=== PATIENT | male | born 1990 | race Caucasian/White ===

== ENCOUNTER 2022-05-03 19:59 | Emergency (ER) | payer SELFPAY ==
[2022-05-03] MEDS ORDERED: Boostrix 0.5 ML (Tdap) VIAL (>/=7 yrs of age) ONE (21:29)
[2022-05-03] MEDS ORDERED: Lidocaine 1% (PF) 30 ML VIAL ONE (22:03)
[2022-05-03] MEDS ORDERED: Triple Antibiotic Oint 1 GM Packet ONE (23:31)
== END 2022-05-03 23:15 | disposition home or self-care (01) ==
LOC: CSHERS 19:59
DX: L03.012 Cellulitis of left finger (principal)
CPT/HCPCS: 26011; 90471; 90715; J2001